=== PATIENT | female | born 1945 | race Caucasian/White ===

== ENCOUNTER 2020-12-23 10:26 | Observation (INO) ==
[2020-12-23] MEDS ORDERED: Nitroglycerin 1 INCH/GM PACKET TP ONE (11:04)
[2020-12-23] MEDS ORDERED: Aspirin 81 MG TAB.CHEW PO STA (11:05)
[2020-12-23] MEDS ORDERED: *HR* LORazepam 0.5 MG TABLET PO ONE (11:08)
[2020-12-23 11:19] LABS: Basophils # 0.1 K/mcL (0.0-0.2); Eosinophils # 0.1 K/mcL (0.0-0.6); Eosinophils % 0.8 %; Hematocrit 44.2 % (35.3-44.9); Hemoglobin 14.7 g/dL (11.5-15.4); Immature Granulocytes % 0.1 % (0-4); Lymphocytes # 3.7 K/mcL (0.6-4.6); Lymphocytes % 47.9 %; Mean Corpuscular HGB Conc 33.3 g/dL (31.6-35.5); Mean Corpuscular Hemoglobin 32.6 pg (28.0-33.3); Mean Platelet Volume 10.3 fL (9.4-12.4); Monocytes # 0.6 K/mcL (0.0-1.3); Neutrophils # 3.3 K/mcL (1.6-8.9); Platelet Count 198 K/mcL (140-400); Red Blood Count 4.51 M/mcL (3.82-4.97); Red Cell Distribution Width 12.5 % (11.5-14.5); Segmented Neutrophils % 42.2 %; White Blood Count 7.8 K/mcL (4.3-11.1)
[2020-12-23 11:39] LABS: INR 1.1; Prothrombin Time 13.1 Seconds (9.4-12.1)
[2020-12-23 11:42] LABS: Activated Partial Thrombo Time 30.5 Seconds (26.0-36.0)
[2020-12-23 11:42] LABS: Alanine Aminotransferase 34 Units/L (7-52); Albumin 4.6 g/dL (3.5-5.7); Albumin/Globulin Ratio 1.6 (1.1-2.2); Alkaline Phosphatase 64 Units/L (34-104); Aspartate Amino Transferase 28 Units/L (13-39); BUN/Creatinine Ratio 24 (6-26); Bilirubin,Total 0.9 mg/dL (0.3-1.0); Blood Urea Nitrogen 23 mg/dL (8-23); Calcium 10.4 mg/dL (8.6-10.3); Carbon Dioxide 24 mEq/L (23-29); Chloride 103 mEq/L (98-107); Creatine Kinase 50 Units/L (30-223); Globulin 2.8 g/dL (2.4-3.5); Glucose 118 mg/dL (70-105); Lipase 37 Units/L (11-82); Magnesium 1.7 mg/dL (1.6-2.6); Osmolality,Calculated 291 (280-300); Potassium 3.5 mEq/L (3.5-5.1); Sodium 138 mEq/L (136-145); Total Protein 7.4 g/dL (6.4-8.9); Troponin I < 0.03 ng/mL (< 0.04); eGFR For African Americans > 60 (> 60); eGFR For Non-African Americans 58 (> 60)
[2020-12-23 11:55] LABS: Thyroid Stimulating Hormone 2.964 mcIU/mL (0.340-5.600)
[2020-12-23 12:02] LABS: Bilirubin,Urine Negative (Negative); Blood,Urine Negative (Negative); Clarity,Urine Clear (Clear); Color,Urine Light-Yellow (Yellow); Glucose,Urine (UA) Normal (Normal); Ketones,Urine Negative (Negative); Leukocyte Esterase,Urine Small (Negative); Mucus,Urine Few per lpf (None-Few); Nitrite,Urine Negative (Negative); PH,Urine 7.5 pH Units (5.0-8.0); Protein,Urine Negative (Neg-Trace); RBC,Urine 0-3 per hpf (0-3); Specific Gravity,Urine 1.009 (1.010-1.025); Urobilinogen,Urine Normal (Normal)
[2020-12-23] MEDS ORDERED: Ondansetron 4 MG/2 ML VIAL IVP PRN (12:54)
[2020-12-23] MEDS ORDERED: *HR* HYDROcodone/Acet 5/325 mg TABLET PO PRN (12:54)
[2020-12-23] MEDS ORDERED: Naloxone 0.4 MG/ML INJ IVP PRN (12:54)
[2020-12-23] MEDS: Acetaminophen IV 1,000 MG/100 ML BAG IVPB ONE ×2 (15:55→17:11)
[2020-12-23] MEDS: Nitroglycerin 0.4 MG TAB.SUBL SL PRN ×2 (16:45→16:50)
[2020-12-23] MEDS ORDERED: ALPRAZolam 0.25 MG TABLET PO ONE (17:11)
[2020-12-23] MEDS: *HR* Heparin 5,000 UNIT/ML VIAL SQ SCH (17:25)
[2020-12-23] MEDS: carvediloL 6.25 MG TABLET PO SCH (17:25)
[2020-12-23] MEDS: Gabapentin 100 MG CAPSULE PO SCH (19:56)
[2020-12-23] MEDS ORDERED: Melatonin 3 MG TABLET PO SCH (21:00)
[2020-12-24 02:38] LABS: Chol/HDL Ratio 3.1 (0-4.9)
[2020-12-24] MEDS ORDERED: Regadenoson 0.4 MG/5 ML SYRINGE IVP ONE (05:43)
[2020-12-24] MEDS: *HR* Heparin 5,000 UNIT/ML VIAL SQ SCH (06:03)
[2020-12-24] MEDS: carvediloL 6.25 MG TABLET PO SCH (08:48)
[2020-12-24] MEDS: Gabapentin 100 MG CAPSULE PO SCH (08:48)
[2020-12-24] MEDS ORDERED: lisinopriL 5 MG TABLET PO SCH (09:00)
[2020-12-24] MEDS ORDERED: Aspirin Enteric Coated 81 MG Tablet PO SCH (09:00)
[2020-12-24 11:00] VITALS: BP 139/78
[2020-12-24] MEDS ORDERED: Pantoprazole 40 MG VIAL IVP ONE (11:09)
== END 2020-12-24 13:44 | disposition home health service (06) ==
LOC: EMEROOARM 10:26 → 3BNU 10:26 → SUATTDRO 13:07 → 3BNU 14:14
PROVIDERS: ADMIT Internal Medicine; ATTEND Internal Medicine

== ENCOUNTER 2020-12-27 10:26 | Observation (INO) ==
[2020-12-27] MEDS ORDERED: Aspirin 81 MG TAB.CHEW PO ONE (10:50)
[2020-12-27] MEDS ORDERED: *HR* LORazepam 2 MG/ML VIAL IVP ONE ×2 (10:50→12:17)
[2020-12-27 11:07] LABS: Basophils # 0.1 K/mcL (0.0-0.2); Basophils % 1.2 %; Eosinophils # 0.1 K/mcL (0.0-0.6); Eosinophils % 1.1 %; Hematocrit 43.2 % (35.3-44.9); Hemoglobin 14.2 g/dL (11.5-15.4); Immature Granulocytes % 0.2 % (0-4); Lymphocytes # 3.6 K/mcL (0.6-4.6); Lymphocytes % 55.1 %; Mean Corpuscular HGB Conc 32.9 g/dL (31.6-35.5); Mean Corpuscular Hemoglobin 32.6 pg (28.0-33.3); Mean Corpuscular Volume 99.3 fL (83.0-100.0); Mean Platelet Volume 10.2 fL (9.4-12.4); Monocytes # 0.7 K/mcL (0.0-1.3); Monocytes % 10.6 %; Neutrophils # 2.1 K/mcL (1.6-8.9); Platelet Count 188 K/mcL (140-400); Red Blood Count 4.35 M/mcL (3.82-4.97); Red Cell Distribution Width 12.3 % (11.5-14.5); Segmented Neutrophils % 31.8 %; White Blood Count 6.5 K/mcL (4.3-11.1)
[2020-12-27 11:40] LABS: BUN/Creatinine Ratio 22 (6-26); Blood Urea Nitrogen 19 mg/dL (8-23); Calcium 10.1 mg/dL (8.6-10.3); Carbon Dioxide 25 mEq/L (23-29); Chloride 102 mEq/L (98-107); Glucose 97 mg/dL (70-105); Osmolality,Calculated 288 (280-300); Potassium 3.4 mEq/L (3.5-5.1); Sodium 138 mEq/L (136-145); Troponin I < 0.03 ng/mL (< 0.04); eGFR For African Americans > 60 (> 60); eGFR For Non-African Americans > 60 (> 60)
[2020-12-27 12:02] LABS: Activated Partial Thrombo Time 30.4 Seconds (26.0-36.0)
[2020-12-27] MEDS ORDERED: Isovue-370 500 ML BOTTLE IVP ONE (12:18)
[2020-12-27] MEDS ORDERED: predniSONE 20 MG TABLET PO ONE (14:33)
[2020-12-27] MEDS ORDERED: Naloxone 0.4 MG/ML INJ IVP PRN (14:35)
[2020-12-27] MEDS ORDERED: Perflutren Lipid Microsphere 1.3 ML in 0.9 % Sodium Chloride 8.7 ML IVP PRN (14:55)
[2020-12-27] MEDS: *HR* Heparin 5,000 UNIT/ML VIAL SQ SCH (18:29)
[2020-12-27 18:48] LABS: Bilirubin,Urine Negative (Negative); Blood,Urine Negative (Negative); Clarity,Urine Clear (Clear); Color,Urine Colorless (Yellow); Glucose,Urine (UA) Normal (Normal); Ketones,Urine Negative (Negative); Leukocyte Esterase,Urine Negative (Negative); Nitrite,Urine Negative (Negative); PH,Urine 6.5 pH Units (5.0-8.0); Protein,Urine Negative (Neg-Trace); Specific Gravity,Urine 1.021 (1.010-1.025); Urobilinogen,Urine Normal (Normal)
[2020-12-27] MEDS ORDERED: Melatonin 3 MG TABLET PO PRN (23:16)
[2020-12-28] MEDS: *HR* Heparin 5,000 UNIT/ML VIAL SQ SCH (05:41)
[2020-12-28 06:48] LABS: BUN/Creatinine Ratio 18 (6-26); Blood Urea Nitrogen 14 mg/dL (8-23); Calcium 9.6 mg/dL (8.6-10.3); Carbon Dioxide 29 mEq/L (23-29); Chloride 103 mEq/L (98-107); Glucose 98 mg/dL (70-105); Magnesium 1.9 mg/dL (1.6-2.6); Osmolality,Calculated 288 (280-300); Phosphorous 3.6 mg/dL (2.7-4.5); Sodium 139 mEq/L (136-145); eGFR For African Americans > 60 (> 60); eGFR For Non-African Americans > 60 (> 60)
[2020-12-28 12:01] VITALS: BP 131/83
[2020-12-30 11:18] LABS: ANA IgG by ELISA NONE DETECTED (None Detected)
[2020-12-31 09:44] LABS: Serine Protease-3 Antibody 7 AU/mL (0-19)
== END 2020-12-28 16:00 | disposition home or self-care (01) ==
LOC: CDU 10:26 → EMEROOARM 10:26 → SUATTDRO 14:55 → CDU 15:29
PROVIDERS: ADMIT Internal Medicine; ATTEND Family Medicine